=== PATIENT | male | born 1980 | race Caucasian/White ===

== ENCOUNTER → 2025-06-12 13:01 | Outpatient (BNVA) | payer SELFPAY | PROVIDERS: PCP Nurse Practitioner; Visit Provider Internal Medicine | DX: R07.9 Chest pain, unspecified (principal) | CPT/HCPCS: 93005 ==

== ENCOUNTER → 2025-06-29 14:59 | Outpatient (BNVA) | payer SELFPAY | PROVIDERS: PCP Nurse Practitioner; Visit Provider Nurse Practitioner | DX: R06.00 Dyspnea, unspecified (principal) | CPT/HCPCS: 71046 ==

== ENCOUNTER 2025-10-12 09:35 | Outpatient (CLI) | payer SELFPAY ==
--- NOTE | 2025-10-12 09:15 | USCV_ITS ---
Earnest Ward Age: 45 Gender: M : 1980 Exam Date: 10/12/2025 09:57 Ordering Phys: Festus Love M.D ([email or web address]) Technologist: [email or web address] Exam Location: [facility] – [place] Indication: Cardiomyopathy BP: 114 / 78 HR: Rhythm: Sinus Technical Quality: Adequate MEASUREMENTS (Male / Female) Normal Values 2D ECHO LV Diastolic Diameter PLAX 4.9 cm 4.2 - 5.9 / 3.9 - 5.3 cm IVS Diastolic Thickness 0.7 cm 0.6 - 1.0 / 0.6 - 0.9 cm IVS Systolic Thickness 0.8 cm LVPW Diastolic Thickness 0.9 cm 0.6 - 1.0 / 0.6 - 0.9 cm LVPW Systolic Thickness 0.9 cm LVOT Diameter 2.1 cm LV Ejection Fraction 2D Teich 12.1 % LV Ejection Fraction MOD 4C 59.4 % LV Ejection Fraction MOD 2C 44.1 % LV Ejection Fraction 2C AL 45.3 % LA Diameter 2.9 cm RA Systolic Volume 4C AL 28.1 ml RA Systolic Volume 4C MOD 26.4 ml LA Sys Volume AL 48.3 cm cubed LA Sys Volume Index AL 25.5 cm cubed/m squared Aorta at Sinotubular Diameter 3.2 cm IVC Diameter 1.4 cm M-MODE LA Ao Ratio MM 1.6 AV Cusp Separation MM 2.1 cm FINDINGS Left Ventricle Right Ventricle Right Atrium Left Atrium IA Septum Mitral Valve Aortic Valve Tricuspid Valve Pulmonic Valve Pericardium Aorta IVC CONCLUSIONS Limited echocardiogram performed to assess LV systolic function. LV systolic function is normal with EF of 50-55%. No regional wall motion abnormalities are seen. RV is normal in size and function Festus Love MD (Electronically Signed) Final Date: 13 October 2025 13:00 S
== END 2025-10-12 09:36 | disposition home or self-care (01) ==
LOC: RAD 09:38
PROVIDERS: PCP Nurse Practitioner; Visit Provider Internal Medicine
DX: I42.9 Cardiomyopathy, unspecified (principal)
CPT/HCPCS: 93308